=== PATIENT | male | born 1985 | race Caucasian/White ===

== ENCOUNTER → 2024-09-09 12:17 | Outpatient (CLI) | payer OTHER, SELFPAY ==
[2024-09-09 13:21] LABS: C-Reactive Protein Quant < 0.5 mg/dL (<1.0); Uric Acid 7.4 mg/dL (3.5-8.5)
[2024-09-09 13:27] LABS: Rheumatoid Factor < 8.6 IU/mL (<12.0)
[2024-09-09 13:32] LABS: Erythrocyte Sedimentation Rate 3 MM/HR (0-15)
[2024-09-09 13:53] LABS: TSH w/ Reflex to FT4 1.71 uIU/mL (0.47-4.68)
[2024-09-12 13:36] LABS: CCP Antibodies IgG/IgA 11 units (0-19)
== END ==
LOC: LAB 12:18
PROVIDERS: PCP Family Medicine; Referring Provider Family Medicine; Visit Provider Family Medicine
DX: M54.9 Dorsalgia, unspecified (principal); G89.29 Other chronic pain; R09.89 Other specified symptoms and signs involving the circulatory and respiratory systems; L65.9 Nonscarring hair loss, unspecified; K21.9 Gastro-esophageal reflux disease without esophagitis; K25.9 Gastric ulcer, unspecified as acute or chronic, without hemorrhage or perforation; Z87.39 Personal history of other diseases of the musculoskeletal system and connective tissue; R76.8 Other specified abnormal immunological findings in serum; M25.50 Pain in unspecified joint; M25.511 Pain in right shoulder; M25.512 Pain in left shoulder; M25.561 Pain in right knee; M25.562 Pain in left knee; M25.521 Pain in right elbow; M25.522 Pain in left elbow; H93.19 Tinnitus, unspecified ear
CPT/HCPCS: 36415; 84443; 84550; 85651; 86038; 86140; 86200; 86430

== ENCOUNTER → 2024-09-13 07:47 | Outpatient (CLI) | payer OTHER, SELFPAY ==
--- NOTE | 2024-09-13 07:48 | DI.CT.S_ITS ---
PROCEDURE: CT SINUS SCREEN WO CON INDICATIONS: Chronic pansinusitis TECHNIQUE: Noncontrast 3.0 mm axial images acquired from the frontal sinuses to the mid-sella, with coronal and sagittal reformats. For radiation dose reduction, the following was used: automated exposure control, adjustment of mA and/or kV according to patient size. COMPARISON: None. FINDINGS: Image quality: Excellent. Mild mucosal thickening in the right maxillary sinus in the left frontal sinus. Small mucous retention cyst in the floor left maxillary sinus. Mild mucosal thickening in the anterior bilateral ethmoid air cells. No paranasal sinus air-fluid levels. The ostiomeatal units are patent bilaterally. Nasal septum is mildly deviated to the right. No pratima bullosa or paradoxical turbinates. No osseous thickening, osseous remodeling or osseous erosions. IMPRESSION: Mild mucosal thickening involving the right maxillary sinus and left frontal sinus. No paranasal sinus air-fluid levels. Dictated by: Ashley De La Vega MD, PhD on 09/13/2024 at 10:18 Approved by: Ashley De La Vega MD, PhD on 09/13/2024 at 10:21
== END ==
PROVIDERS: PCP Family Medicine; Referring Provider Otolaryngology; Visit Provider Otolaryngology
DX: J32.4 Chronic pansinusitis (principal)
CPT/HCPCS: 70486

== ENCOUNTER → 2024-09-20 07:11 | Outpatient (CLI) | payer OTHER, SELFPAY ==
--- NOTE | 2024-09-20 07:12 | DI.MRI.S_ITS ---
PROCEDURE: MR SHOULDER RT WO CON INDICATIONS: right shoulder pain TECHNIQUE: Noncontrast oblique coronal T2 fast spin echo with fat saturation, oblique sagittal T1 spin echo and T2 fast spin echo with fat saturation, axial T1 spin echo and T2 fast spin echo with fat saturation through the shoulder. COMPARISON: None. FINDINGS: Image quality: Excellent. Rotator cuff: The supraspinatus, infraspinatus, and subscapularis tendons appear intact throughout. Rotator cuff musculature is normal in bulk. Mildly increased T2-weighted signal in the lateral belly of the deltoid muscle. Bones and bursae: No acute trabecular bone injury or fracture. No focal glenohumeral cartilage defect. Moderate degenerative changes of the acromioclavicular joint with subchondral edema, subchondral cystic changes, and small marginal osteophytes. No significant glenohumeral effusion. Trace subacromial/subdeltoid bursal fluid. Capsule and soft tissues: Nondisplaced tearing of the superior labrum extending into the anterior superior, posterior superior, posterior inferior labrum. A lobular posterior paralabral cyst measures approximately 11 x 4 x 11 mm. Anterior superior paralabral cyst measures 6 x 2 x 7 mm. Proximal biceps long head tendon is intact. Mild partial effacement of fat signal in the rotator interval. Glenohumeral ligaments are grossly intact. IMPRESSION: 1. Nondisplaced tearing of the superior labrum from anterior superior to posterior inferior. Paralabral cysts are seen measuring up to 11 mm posteriorly in 7 mm anterior superiorly. 2. Proximal biceps long head tendon is intact. No significant rotator cuff tendon tearing. 3. Moderate acromioclavicular joint osteoarthrosis. 4. Mild edema in the lateral belly of the deltoid muscle may be related to low-grade strain versus recent intramuscular injection. Approved by: Jason Fontenot M.D. on 09/20/2024 at 8:30
== END ==
LOC: MRI 07:11
PROVIDERS: PCP Family Medicine; Referring Provider Family Medicine; Visit Provider Family Medicine
DX: S43.431A Superior glenoid labrum lesion of right shoulder, initial encounter (principal); M19.011 Primary osteoarthritis, right shoulder; M25.511 Pain in right shoulder; R76.8 Other specified abnormal immunological findings in serum; M25.50 Pain in unspecified joint; M25.512 Pain in left shoulder; M25.561 Pain in right knee; M25.562 Pain in left knee; M25.521 Pain in right elbow; M25.522 Pain in left elbow
CPT/HCPCS: 73221